=== PATIENT | female | born 1985 | race Caucasian/White ===

== ENCOUNTER 2017-11-29 20:59 | Emergency (ER) | payer OTHER ==
--- NOTE | 2017-11-29 21:05 | PDOC ---
History of Present Illness - General Chief Complaint: Shortness of Breath Stated Complaint: FACIAL LESIONS, SOB Time Seen by Provider: 11/29/17 21:04 History Source: Patient Exam Limitations: No Limitations - History of Present Illness Initial Comments: 11/29/17 22:35 This is a 32-year-old female who comes in with multiple somatic complaints however the complaint that she says she is most concerned about is some chest pain. Patient said the chest pain is sharp and lasts a few seconds and is associated with some palpitations and shortness of breath. Patient denies any cough, congestion, fever, chills, nausea, vomiting, diarrhea. Patient is also complaining of some skin lesions on her face for which she saw her primary care doctor today and is scheduled to see a county demonstrator next week. Patient is very anxious and concerned about her health with a long list of complaints that she has gone to multiple doctors for and had multiple workups with no cause found. Patient otherwise is afebrile here has normal vitals and does appear to be somewhat anxious. PAST MEDICAL HISTORY: no significant history PAST SURGICAL HISTORY: no significant history FAMILY HISTORY: no pertinant history SOCIAL HISTORY: Pt lives with family and is employed. Patient is a smoker but denies any illegal substance use abuse MEDICATIONS: reviewed ALLERGIES: As per nursing notes Review of Systems General: No fevers or chills, no weakness, no weight loss HEENT: No change in vision. No sore throat,. No ear pain CardioVascular: No chest pain or shortness of breath Respiratory:No cough, or wheezing. Gastrointestinal: no nausea, vomitting, diarrhea or constipation, No rectal bleeding Genitourinary: No dysuria, hematuria, or frequency Musculoskeletal: No joint or muscle pain or swelling Neurologic: No headache, vertigo, dizziness or loss of consciousness Psychiatric: nor depression Skin: No rashes or easy bruising Endocrine: no increased thirst or abnormal weight change Allergic: no skin or latex allergy All other systems reviewed and normal Exam: General: Well-nourished well-developed individual, no acute distress HEENT: Throat: Normal, tonsils normal, no erythema or exudate Neck: Supple, no meningeal signs, no lymphadenopathy Eyes::Pupils equal reactive and round, extraocular motion intact Chest: Nontender to palpation Cardiac: S1-S2 normal, regular rate and rhythm, no murmurs rubs or gallops Respiratory: Lungs clear to auscultation bilateral Abdomen: Soft, nondistended, normal bowel sounds, nontender to palpation diffusely Extremities: Warm, dry, no cyanosis, clubbing, or edema Skin: No rashes, there are multiple small lesions that appear to be very small, 1-2 mm pimples on her face. There is no swelling, bruising, increased warmth, tenderness or erythema. Neuro: Alert and oriented x3, CN II - XII intact, nonfocal exam with normal strength, normal sensation, normal reflexes, normal gait, Psych: Normal mood and affect Patient had a cardiogram that shows normal sinus rhythm at a rate of 74 normal intervals completely normal EKG. Patient was discharged told to continue to follow up with her doctor and keep her appointment with her county demonstrator. Past History - Past Medical History Allergies/Adverse Reactions: Allergies Allergy/AdvReac Type Severity Reaction Status Date / Time Penicillins Allergy Mild Unverified 11/18/13 11:39 Home Medications: Ambulatory Orders Azithromycin [Zithromax -] 250 mg PO DAILY 11/29/17 *DC/Admit/Observation/Transfer Diagnosis at time of Disposition: Anxiety about health - Discharge Dispostion Disposition: HOME Condition at time of disposition: Stable Admit: No - Referrals Referrals: Malka Schumacher [Primary Care Provider] - - Patient Instructions Additional Instructions: Is important that you keep your appointment with your county demonstrator Your cardiogram was completely normal and there is no concern that there is anything wrong with her heart. Return to the emergency department immediately with ANY new, persistent or worsening symptoms. Continue any medications as previously prescribed by your physician. You should follow up with your primary doctor as soon as possible regarding today's emergency department visit. . Please make sure your doctor reviews the results of your emergency evaluation. Thank you for coming to the Emergency Department today for your care. It was a pleasure to see you today. Please note that your evaluation is INCOMPLETE until you follow-up with your doctor. - Post Discharge Activity
[2017-11-29 21:08] VITALS: BP 106/68; PULSE 85; TEMP 98.6; BMI 21.7
--- NOTE | 2017-12-05 16:58 | EKG ---
Test Reason : Blood Pressure : / mmHG Vent. Rate : 074 BPM Atrial Rate : 074 BPM P-R Int : 152 ms QRS Dur : 088 ms QT Int : 428 ms P-R-T Axes : 056 051 040 degrees QTc Int : 475 ms NORMAL SINUS RHYTHM NONSPECIFIC T WAVE ABNORMALITY NO PREVIOUS ECGS AVAILABLE Confirmed by MD ROGERS MARJORY ([id number]) on 12/05/2017 4:58:01 PM Referred By: DR KEITH Confirmed By:BRYANT ROGERS MD
== END 2017-11-29 22:54 | disposition home or self-care (01) ==
LOC: FER 20:59
DX: F41.8 Other specified anxiety disorders (principal)
CPT/HCPCS: 93005; 93010; 99281-25